=== PATIENT | female | born 1955 | race Caucasian/White ===

== ENCOUNTER 2016-12-29 07:20 | Outpatient (CLI) | payer MEDICAID | END 2016-12-29 07:21 | disposition EMS.NT | LOC: EMS 07:20 | PROVIDERS: ATTEND Surgery | DX: R25.1 Tremor, unspecified (principal) ==

== ENCOUNTER 2017-01-02 16:25 | Outpatient (CLI) | payer MEDICAID | END 2017-01-02 16:26 | disposition critical access hospital (66) | LOC: EMS 16:25 | PROVIDERS: ATTEND Surgery | DX: R46.2 Strange and inexplicable behavior (principal); Z59.0 Homelessness | CPT/HCPCS: A0425; A0429 ==

== ENCOUNTER 2017-01-02 16:44 | Emergency (ER) | payer MEDICAID ==
[2017-01-02 16:48] VITALS: BP 154/94
[2017-01-02 17:11] LABS: BASOPHILS # (AUTO) 0.1 10^3/uL (0.0-0.1); BASOPHILS % (AUTO) 0.9 %; EOSINOPHILS # (AUTO) 0.2 10^3/uL (0.0-0.7); HCT - HEMATOCRIT 39.2 % (37.0-47.0); LYMPHOCYTES # (AUTO) 3.1 10^3/uL (1.5-3.5); LYMPHOCYTES % (AUTO) 27.3 %; MEAN CORPUSCULAR HEMOGLOBIN 28.9 pg (27.0-31.0); MEAN CORPUSCULAR HGB CONC 33.1 g/dL (32.0-36.0); MEAN PLATELET VOLUME 7.5 fL (7.9-10.8); MONOCYTES % (AUTO) 8.6 %; NEUTROPHILS # (AUTO) 6.9 10^3/uL (1.5-6.6); NEUTROPHILS % (AUTO) 61.2 %; UNCORRECTED WHITE BLOOD COUNT 11.3 x10^3/uL; WHITE BLOOD COUNT 11.3 x10^3/uL (4.8-10.8)
[2017-01-02 17:26] LABS: ALBUMIN/GLOBULIN RATIO 1.3 (1.0-2.2); BILIRUBIN,TOTAL 0.3 mg/dL (0.2-1.0); BUN - BLOOD UREA NITROGEN 20 mg/dL (6-20); CALCIUM 9.2 mg/dL (8.5-10.3); CARBON DIOXIDE - CO2 24 mmol/L (21-32); CHLORIDE 105 mmol/L (101-111); CREATININE 0.9 mg/dL (0.4-1.0); GFR - MDRD 64 (>89); GLUCOSE 106 mg/dL (70-100); LIPASE 42 U/L (22-51); POTASSIUM 4.1 mmol/L (3.5-5.0); SALICYLATE < 6.0 mg/dL; SODIUM 138 mmol/L (135-145); TOTAL PROTEIN 7.1 g/dL (6.7-8.2)
[2017-01-02 17:27] LABS: BILIRUBIN,URINE NEGATIVE (NEGATIVE)
[2017-01-02 17:28] LABS: UA CHARGE (STRIP ONLY) YES; UR CULTURE IF IND NOT INDICATED
[2017-01-02 17:37] LABS: ACETAMINOPHEN < 10 ug/mL (10-30)
--- NOTE | 2017-01-02 17:50 | ED Physician Documentation ---
History of Present Illness - Stated complaint Stated Complaint: dysuira - Chief complaint Chief Complaint: MHE - History obtained from History obtained from: Patient, EMS - History of Present Illness Timing: Today Pain level max: 0 Pain level now: 0 - Additonal information Additional information: Patient is a 61-year-old female who presents to the emergency department complaining of dysuria and feeling like her face is infected. She states that she was trying to get on a bus today and the business practices supervisor would not let her on because her face may have been infected. She feels like sometimes there are bugs that crawl on her skin. She denies any hallucinations. Denies any homicidal or suicidal ideation. Denies any fevers, vomiting, diarrhea. Patient states that she is visiting from [place]. Patient also complains of intermittent body aches. States that she is not currently feeling the body aches. Review of Systems Ten Systems: 10 systems reviewed and negative Constitutional: denies: Fever, Chills Ears: denies: Ear pain Nose: denies: Rhinorrhea / runny nose, Congestion Throat: denies: Sore throat Cardiac: denies: Chest pain / pressure Respiratory: denies: Cough GI: denies: Nausea, Vomiting, Diarrhea : reports: Dysuria, Frequency, Hesitancy Skin: denies: Rash Musculoskeletal: denies: Neck pain, Back pain Neurologic: denies: Headache PD PAST MEDICAL HISTORY - Past Medical History Past Medical History: No - Past Surgical History Past Surgical History: No - Allergies Allergies/Adverse Reactions: Allergies Allergy/AdvReac Type Severity Reaction Status Date / Time Sulfa (Sulfonamide Allergy Rash Verified 01/02/17 16:49 Antibiotics) - Living Situation Living Arrangement: reports: Homeless - Social History Does the pt smoke?: Yes Smoking Status: Current every day smoker Does the pt drink ETOH?: No Does the pt have substance abuse?: No PD ED PE NORMAL - Vitals Vital signs reviewed: Yes - General General: Alert and oriented X 3, No acute distress, Well developed/nourished - HEENT HEENT: Atraumatic, PERRL, EOMI, Ears normal, Moist mucous membranes, Pharynx benign - Neck Neck: Supple, no meningeal sign, No bony TTP, No adenopathy - Cardiac Cardiac: RRR, Strong equal pulses - Respiratory Respiratory: No respiratory distress, Clear bilaterally - Abdomen Abdomen: Soft, Non tender, Non distended - Back Back: No CVA TTP, No spinal TTP - Derm Derm: Warm and dry, No rash - Neuro Neuro: Alert and oriented X 3, No motor deficit, No sensory deficit, Normal speech - Psych Psych: Other (Intermittently irritable) Results - Vitals Vitals: Vital Signs - 24 hr 01/02/17 16:45 Temperature 36.9 C Heart Rate 115 H Respiratory 17 Rate Blood Pressure 154/94 H O2 Saturation 96 Oxygen O2 Source Room air - Labs Labs: Laboratory Tests 01/02/17 01/02/17 01/02/17 17:00 17:03 17:03 WBC 11.3 H RBC 4.50 Hgb 13.0 Hct 39.2 MCV 87.0 MCH 28.9 MCHC 33.1 RDW 16.0 H Plt Count 530 H MPV 7.5 L Neut # 6.9 H Lymph # 3.1 Wallace # 1.0 Eos # 0.2 Baso # 0.1 Absolute Nucleated RBC 0.00 Nucleated RBCs 0.0 Sodium 138 Potassium 4.1 Chloride 105 Carbon Dioxide 24 Anion Gap 9.0 BUN 20 Creatinine 0.9 Estimated GFR (MDRD) 64 L Glucose 106 H Calcium 9.2 Total Bilirubin 0.3 AST 24 ALT 21 Alkaline Phosphatase 77 Total Protein 7.1 Albumin 4.0 Globulin 3.1 Albumin/Globulin Ratio 1.3 Lipase 42 Urine Color LIGHT YELLOW Urine Clarity CLEAR Urine pH 6.0 Ur Specific [place] <=1.005 Urine Protein NEGATIVE Urine Glucose (UA) NEGATIVE Urine Ketones NEGATIVE Urine Occult Blood NEGATIVE Urine Nitrite NEGATIVE Urine Bilirubin NEGATIVE Urine Urobilinogen 0.2 (NORMAL) Ur Leukocyte Esterase NEGATIVE Ur Microscopic Review NOT INDICATED Urine Culture Comments NOT INDICATED Salicylates < 6.0 Urine Opiates Screen NEGATIVE Ur Oxycodone Screen NEGATIVE Urine Methadone Screen NEGATIVE Ur Propoxyphene Screen NEGATIVE Acetaminophen < 10 L Ur Barbiturates Screen NEGATIVE Ur Tricyclics Screen NEGATIVE Ur Phencyclidine Scrn NEGATIVE Ur Amphetamine Screen NEGATIVE U Methamphetamines Scrn NEGATIVE U Benzodiazepines Scrn NEGATIVE Urine Cocaine Screen NEGATIVE U Cannabinoids Screen NEGATIVE Ethyl Alcohol < 5.0 PD MEDICAL DECISION MAKING - ED course Complexity details: reviewed results, re-evaluated patient, considered differential, d/w patient ED course: Patient is a 61-year-old female who presents to the emergency department with complaints of dysuria. No evidence of UTI. Declines a pelvic exam. She also felt like there were bugs crawling on her skin, there is no parasitosis. She is not homicidal or suicidal. She is well kept. Well-groomed. She did become irritated when she was being discharged and states that she does not have anywhere to go and does not like the [facility] in [place] because they do not have a good food. When she further refused to be discharged, she was escorted out by police. She then got out of bed, put on her own shoes picked up her belongings and walked out under her own power. States that she is going to go back to [place]. This document was made in part using voice recognition software. While efforts are made to proofread this document, sound alike and grammatical errors may occur. Departure - Departure Disposition: 01 Home, Self Care Clinical Impression: Dysuria, Body aches Condition: Good Instructions: ED Dysuria Uncertain Cause Follow-Up: your,doctor in 1 week [Other] Comments: Follow up with your doctor for further care. Discharge Date/Time: 01/02/17 18:03
== END 2017-01-02 18:03 | disposition home or self-care (01) ==
LOC: EDUNIT# → ED 16:44
DX: R30.0 Dysuria (principal); R52 Pain, unspecified; F17.200 Nicotine dependence, unspecified, uncomplicated
CPT/HCPCS: 36415; 80053; 80306; 80307; 80320; 80329; 81001; 81003; 83690; 85025; 87086; 99282; 99283

== ENCOUNTER 2017-01-03 07:22 | Emergency (ER) | payer MEDICAID ==
--- NOTE | 2017-01-03 07:43 | ED Physician Documentation ---
ED Addendum - Addendum Addendum: 01/03/17 07:34 pt checked in, I reviewed yesterdays note and went in to see her within 5 min of arrival, she was not in her room, staff states pt eloped per nursing pt presented with sensations of bugs on her face and was not suicidal or homicidal OSVALDO indicates pt has a hx of hallucinations, psychosis, delusions, anxiety, substance abuse, 10 ER visits in the last year, 5 in the last month 01/03/17 07:43
== END 2017-01-03 07:50 | disposition left against medical advice (07) ==
LOC: ED 07:22
DX: R44.3 Hallucinations, unspecified (principal); Z53.21 Procedure and treatment not carried out due to patient leaving prior to being seen by health care provider